=== PATIENT | female | born 1945 | race Caucasian/White ===

== ENCOUNTER 2016-08-08 12:56 | Outpatient (CLI) | payer OTHER ==
--- NOTE | 2016-08-08 13:32 | DIAGNOSTIC IMAGING REPORT ---
PROCEDURE: DEXA BONE DENSITY STUDY CLINICAL INDICATION: OSTEOPOROSIS COMPARISON: DEXA 11/11/2013 FINDINGS: LUMBAR SPINE: Bone mineral density 0.831 g/cm2, T score -2.0 osteopenia which represents an 8.7% decrease from the previous study LEFT HIP: Bone mineral density 0.624 g/cm2, T score -2.6 osteoporosis which represents a minus 0.4% decrease from the previous study LEFT FEMORAL NECK: Bone mineral density 0.567 g/cm2, T score -2.5 osteoporosis which represents a 0.9% decrease from the previous study FRACTURE RISK CALCULATION ( when applicable): 10-year fracture risk of a major osteoporotic fracture and of a hip fracture not reported because some T-scores at or below -2.5 (T score greater or equal to -1.0 to: NORMAL) (T score from -1.1 to -2.4: OSTEOPENIA) (T score ess than or equal to -2.5: OSTEOPOROSIS) IMPRESSION: 1. Osteoporosis left hip and femoral neck. Osteopenia lumbar spine.
== END 2016-08-08 23:00 ==
LOC: XR SRH 12:56
DX: M81.8 Other osteoporosis without current pathological fracture (principal)

== ENCOUNTER 2016-11-28 16:52 | Outpatient (CLI) | payer OTHER ==
--- NOTE | 2016-11-28 17:31 | DIAGNOSTIC IMAGING REPORT ---
PROCEDURE: XR SHOULDER 2 OR MORE VW-RIGHT INDICATION: SHOULDER AND RIB PX AFTER FALL TECHNIQUE: Three views. COMPARISON: None. FINDINGS: Osseous structures and joint spaces are normal. No fracture dislocation. There is an old healed clavicular fracture. IMPRESSION: 1. Normal right shoulder.
--- NOTE | 2016-11-28 17:37 | DIAGNOSTIC IMAGING REPORT ---
PROCEDURE: XR RIBS UNILATERAL - RIGHT INDICATION: SHOULDER AND RIB PX AFTER FALL TECHNIQUE: Two views of the right ribs with single PA view chest. COMPARISON: None. FINDINGS: RIGHT RIBS: No displaced rib fractures. No suspicious rib lesions. CHEST: Normal cardiomediastinal contour. Clear lungs without pleural effusion, pneumothorax, or contusion. The other visible osseous structures are intact. IMPRESSION: 1. Intact right ribs. 2. Normal chest without radiographic evidence of trauma.
== END 2016-11-28 23:00 ==
LOC: XR SRH 16:52
DX: M25.511 Pain in right shoulder (principal); R07.81 Pleurodynia